=== PATIENT | female | born 1960 | race Hispanic/Latino ===

== ENCOUNTER → 2018-11-28 | Day surgery (SDC) | payer BC ==
[2018-11-26 12:25] LABS: BASOPHILS % 0.8 % (0.0-1.0); EOSINOPHILS # (AUTO) 0.2 (0.0-0.4); EOSINOPHILS % 3.5 % (0.0-6.0); HEMATOCRIT 36.8 % (34.2-44.1); HEMOGLOBIN 12.8 g/dL (12.0-16.0); LYMPHOCYTES # (AUTO) 1.8 (1.0-3.2); LYMPHOCYTES % 36.7 % (18.0-39.1); MEAN CORPUSCULAR HEMOGLOBIN 32.4 pg (28-32); MEAN CORPUSCULAR HGB CONC 34.8 g/dL (31-35); MEAN CORPUSCULAR VOLUME 93.2 fL (81-99); MONOCYTES # (AUTO) 0.4 (0.2-0.8); MONOCYTES % 8.2 % (4.4-11.3); NEUTROPHILS # (AUTO) 2.5 (2.1-6.9); NEUTROPHILS % 50.4 % (38.7-80.0); PLATELET COUNT 282 x10e3/uL (140-360); RED BLOOD COUNT 3.95 x10e6/uL (3.6-5.1); RED CELL DISTRIBUTION WIDTH 12.6 % (11.7-14.4)
[2018-11-26 12:52] LABS: ANION GAP 13.9 mmol/L (8-16); BLOOD UREA NITROGEN 14 mg/dL (7-26); BUN/CREATININE RATIO 18 (6-25); CALCIUM 10.2 mg/dL (8.4-10.2); CARBON DIOXIDE 26 mmol/L (22-29); CHLORIDE 101 mmol/L (98-107); CREATININE, SERUM 0.78 mg/dL (0.57-1.11); EST GLOMERULAR FILTRATION RATE > 60 ML/MIN (60-); GLUCOSE 100 mg/dL (74-118); POTASSIUM 3.9 mmol/L (3.5-5.1); SODIUM 137 mmol/L (136-145)
[~2018-11-28] MED LIST: BENICAR HCT 401 EAC1 PO; BUPIVACAINE 0.25% 30ML SDV INJ ONE; CEFAZOLIN SOD 1 GM/NS 50ML 100 ML IV ONE; DEXAMETHASONE SOD PHOS INJ 4 MG/ML VIAL ONE; FENTANYL CITRATE/PF 100MCG/2 ML INJ ONE; KETAMINE HCL INJ 50 MG/ML 10 ML VIAL ONE; LIDOCAINE HCL 2% LOCAL INJ 5 ML SDV VIAL INJ ONE; LOSARTAN POTASS25 MG PO; MIDAZOLAM HCL 2 MG/2 ML VIAL ONE; MUPIROCIN 2% OINT 22 GM TUBE ONE; PROPOFOL IV EMULSION 10 MG/ML 20 ML VIAL ONE; SEVOFLURANE INHAL SOLN 250 ML PEN BTL ONE
--- OUTSIDE RECORDS SUMMARY | 2018-11-28 09:01 | XMS REPORT | CCD ---
Author Author Auto Generated Organization [facility] Address Unknown Phone Unavailable Care Team Providers Care Fuel Pilot Engineer Name Role Phone Jose Zendejas CP Allergies, Adverse Reactions, Alerts Substance Reaction Status NKDA Active Medications Medication Instructions Start Date End Date Status atropine 0.5 mg, 5 mL, Route: IVP, Drug 11/16/2012 11/17/2012 Discontinued form: INJ, PRN, PRN Bradycardia, Start date: 11/16/12 20:35:00, Duration: 30 day, Stop date: 12/16/12 21:34:00 Tylenol 1,000 mg, 2 tab, Route: PO, Drug 11/16/2012 11/16/2012 Completed form: TAB, ONCE, Dosing Weight 88.636, kg, Start date: 11/16/12 17:15:00, Stop date: 11/16/12 17:15:00 pantoprazole 40 mg, 1 tab, Route: PO, Drug form: 11/17/2012 11/17/2012 Discontinued ECTAB, Daily, Dosing Weight 88.636, kg, Priority: Routine, Start date: 11/17/12 6:30:00, Duration: 30 day, Stop date: 12/16/12 6:30:00 aspirin 81 mg 81 mg, 1 tab, Route: PO, Drug form: 11/17/2012 11/17/2012 Discontinued tablet, enteric ECTAB, Daily, Dosing Weight 88.636, coated kg, Start date: 11/17/12 9:00:00, Duration: 30 day, Stop date: 12/16/12 9:00:00 acetaminophen 650 mg, 2 tab, Route: PO, Drug 11/16/2012 11/17/2012 Discontinued form: TAB, Q4H, Dosing Weight 85.455, kg, PRN Pain/Fever, Start date: 11/16/12 20:36:00, Duration: 30 day, Stop date: 12/16/12 20:35:00 temazepam 15 mg, 1 cap, Route: PO, Drug form: 11/16/2012 11/17/2012 Discontinued CAP, Bedtime, Dosing Weight 85.455, kg, PRN Insomnia, Start date: 11/16/12 20:36:00, Duration: 30 day, Stop date: 12/16/12 20:35:00 morphine Sulfate 2 mg, 1 mL, Route: IVP, Drug form: 11/16/2012 11/17/2012 Discontinued INJ, Q3H, Dosing Weight 85.455, kg, PRN Pain Score 4-6, Start date: 11/16/12 20:36:00, Duration: 30 day, Stop date: 12/16/12 20:35:00 ondansetron 4 mg, 2 mL, Route: IVP, Drug form: 11/16/2012 11/17/2012 Discontinued INJ, Q6H, Dosing Weight 85.455, kg, PRN Nausea & Vomiting, Start date: 11/16/12 20:36:00, Duration: 30 day, Stop date: 12/16/12 20:35:00 pantoprazole 40 mg, Route: IVP, Drug form: INJ, 11/16/2012 11/16/2012 Completed ONCE, Dosing Weight 88.636, kg, Priority: STAT, Start date: 11/16/12 17:01:00, Stop date: 11/16/12 17:01:00 Vital Signs Most recent to oldest [Reference Range]: 1 2 3 Height 172.72 cm (11/16/2012 20:28:00) 167.64 cm (11/16/2012 15:55:00) Temperature Oral [96.4-99.1 DegF] 97.7 DegF (11/17/2012 08:00:00) 97.6 DegF (11/17/2012 04:00:00) 98.3 DegF (11/17/2012 00:00:00) Systolic Blood Pressure [90-140 mmHg] 127 mmHg (11/17/2012 08:00:00) 109 mmHg (11/17/2012 04:00:00) 125 mmHg (11/17/2012 00:00:00) Diastolic Blood Pressure [60-90 mmHg] 69 mmHg (11/17/2012 08:00:00) 64 mmHg (11/17/2012 04:00:00) 80 mmHg (11/17/2012 00:00:00) Respiratory Rate [14-20 BRMIN] 16 BRMIN (11/17/2012 08:00:00) 18 BRMIN (11/17/2012 04:00:00) 18 BRMIN (11/17/2012 00:00:00) Peripheral Pulse Rate [60-100 bpm] 52 bpm *LOW* (11/17/2012 08:00:00) 51 bpm *LOW* (11/17/2012 04:00:00) 54 bpm *LOW* (11/17/2012 00:00:00) Weight 85.455 kg (11/16/2012 20:28:00) 88.636 kg (11/16/2012 15:55:00) Results URINALYSIS Most recent to oldest [Reference Range]: 1 2 3 UA Turbidity [Clear] Clear (11/16/2012 17:01:00) UA Color Ltyellow *NA* (11/16/2012 17:01:00) UA pH [5.0-8.0] 6.0 (11/16/2012 17:01:00) UA Spec Grav [<=1.030] 1.006 (11/16/2012 17:01:00) UA Glucose [Negative mg/dL] Negative mg/dL *NA* (11/16/2012 17:01:00) UA Blood [Negative] Negative (11/16/2012 17:01:00) UA Ketones [Negative mg/dL] Negative mg/dL *NA* (11/16/2012 17:01:00) UA Protein [Negative mg/dL] Negative mg/dL (11/16/2012 17:01:00) UA Urobilinogen [0.1-1.0 mg/dL] <=1.0 mg/dL *NA* (11/16/2012 17:01:00) UA Bili [Negative] Negative *NA* (11/16/2012 17:01:00) UA Leuk Est [Negative] Negative (11/16/2012 17:01:00) UA Nitrite [Negative] Negative (11/16/2012 17:01:00) UA WBC [0-5 /HPF] <1 /HPF (11/16/2012:01:00) UA RBC [0-2 /HPF] <1 /HPF (11/16/2012:01:00) UA Bacteria [None Seen /HPF] Occasional /HPF *NA* (11/16/2012::00) UA Sq Epi None Seen *NA* (11/16/2012::00) CHEMISTRY Most recent to oldest [Reference Range]: 1 2 3 Sodium Lvl [135-145 mEq/L] 143 mEq/L (11/16/2012::00) Potassium Lvl [3.5-5.1 mEq/L] 3.8 mEq/L (11/16/2012::00) Chloride Lvl [95-109 mEq/L] 107 mEq/L (11/16/2012::00) CO2 [24-32 mEq/L] 28 mEq/L (11/16/2012::00) AGAP [10.0-20.0 mEq/L] 11.8 mEq/L (11/16/2012::00) Creatinine Lvl [0.5-1.4 mg/dL] 0.9 mg/dL (11/16/2012::00) eGFR 73 mL/min/1.73m2 1 *NA* (11/16/2012::00) BUN [7-22 mg/dL] 16 mg/dL (11/16/2012::00) B/C Ratio [6-25] 18 (11/16/2012::00) Glucose Lvl [70-99 mg/dL] 130 mg/dL 2 *HI* (11/16/2012::00) Total Protein [6.4-8.4 g/dL] 7.0 g/dL (11/16/2012:01:00) Albumin Lvl [3.5-5.0 g/dL] 3.4 g/dL *LOW* (11/16/2012:01:00) Globulin [2.0-4.0 g/dL] 3.6 g/dL (11/16/2012:01:00) A/G Ratio [0.7-1.6] 0.9 (11/16/2012::00) Calcium Lvl [8.5-10.5 mg/dL] 8.5 mg/dL (11/16/2012:01:00) ALT [0-65 unit/L] 24 unit/L (11/16/2012:01:00) AST [0-37 unit/L] 17 unit/L (11/16/2012::00) Alk Phos [39-136 unit/L] 122 unit/L (11/16/2012::00) Bili Total [0.2-1.3 mg/dL] 0.2 mg/dL (11/16/2012:01:00) Total CK [12-191 unit/L] 80 unit/L (11/17/2012:41:00) 85 unit/L (11/16/2012:51:00) 85 unit/L (11/16/2012:51:00) CK MB [0.5-3.6 ng/mL] 0.7 ng/mL (11/17/2012:41:00) 0.8 ng/mL (11/16/2012:51:00) 1.0 ng/mL (11/16/2012::00) CK MB Index [0.0-2.5] 0.9 (11/17/2012:41:00) 1.0 (11/16/2012:51:00) 1.0 (11/16/2012:00) Troponin-I [0.00-0.40 ng/mL] <0.02 ng/mL (11/17/2012:41:00) <0.02 ng/mL (11/16/2012:51:00) <0.02 ng/mL (11/16/2012:01:00) CHD Risk [3.90-5.80] 3.69 *LOW* (11/17/2012:41:00) Chol [120-200 mg/dL] 155 mg/dL (11/17/2012:41:00) Trig [0-200 mg/dL] 98 mg/dL (11/17/2012:41:00) HDL [>=35 mg/dL] 42 mg/dL (11/17/2012 04:41:00) LDL [0-129 mg/dL] 93 mg/dL (11/17/2012 04:41:00) 1Result Comment: The eGFR is calculated using the CKD-EPI formula. In most young, healthy individuals the eGFR will be >90 mL/min/1.73m2. The eGFR declines with age. An eGFR of 60-89 may be normal in some populations, particularly the elderly, for whom the CKD-EPI formula has not been extensively validated. Use of the eGFR is not recommended in the following populations: Individuals with unstable creatinine concentrations, including patients and those with serious co-morbid conditions. Patients with extremes in muscle mass or diet. The data above are obtained from the National Kidney Disease Education Program ( NKDEP) which additionally recommends that when the eGFR is used in patients with extremes of body mass index for purposes of drug dosing, the eGFR should be mul tiplied by the estimated BMI. 2Interpretive Data: Adult reference range values reflect the clinical guidelines of the [place] [employer]. HEMATOLOGY Most recent to oldest [Reference Range]: 1 2 3 WBC [3.7-10.4 K/CMM] 7.2 K/CMM (11/16/2012::00) RBC [4.20-5.40 M/CMM] 3.81 M/CMM *LOW* (11/16/2012::00) Hgb [12.0-16.0 g/dL] 11.8 g/dL *LOW* (11/16/2012::00) Hct [36.0-48.0 %] 35.4 % *LOW* (11/16/2012:00) MCV [81.0-99.0 fL] 93.0 fL (11/16/2012::00) MCH [27.0-31.0 pg] 31.0 pg (11/16/2012::00) MCHC [32.0-36.0 g/dL] 33.4 g/dL (11/16/2012:00) RDW [11.5-14.5 %] 13.4 % (11/16/2012::00) Platelet [133-450 K/CMM] 256 K/CMM (11/16/2012 17:01:00) MPV [7.4-10.4 fL] 7.3 fL *LOW* (11/16/2012:01:00) Segs [45.0-75.0 %] 59.4 % (11/16/2012::00) Lymphocytes [20.0-40.0 %] 26.1 % (11/16/2012::00) Monocytes [2.0-12.0 %] 6.4 % (11/16/2012::00) Eosinophils [0.0-4.0 %] 7.5 % *HI* (11/16/2012::00) Basophils [0.0-1.0 %] 0.6 % (11/16/2012::00) Segs-Bands # [1.5-8.1 K/CMM] 4.3 K/CMM (11/16/2012 17::00) Lymphocytes # [1.0-5.5 K/CMM] 1.9 K/CMM (11/16/2012:01:00) Monocytes # [0.0-0.8 K/CMM] 0.5 K/CMM (11/16/2012:01:00) Eosinophils # [0.0-0.5 K/CMM] 0.5 K/CMM (11/16/2012:01:00) Basophils # [0.0-0.2 K/CMM] 0.0 K/CMM (11/16/2012 17:01:00) Procedures Procedures Date Related Diagnosis Tubal ligation
--- OUTSIDE RECORDS SUMMARY | 2018-11-28 09:01 | XMS REPORT | Continuity of Care Document ---
Author Author [facility] Address Unknown Phone Unavailable Problems Problem Status Onset Date Classification Date Reported Comments Source CHEST PIAN Active 11/16/2012 [facility] CHEST PAIN Active 06/22/2011 [facility] CHEST PAIN NOS Active [facility] Medications Medication Details Route Status Patient Instructions Ordering Provider Order Date Source aspirin 81 mg tablet, enteric coated 81 mg, 1 tab, Route: PO, Drug form: ECTAB, Daily, Dosing Weight 88.636, kg, Start date: 11/17/12 9:00:00, Duration: 30 day, Stop date: 12/16/12 9:00:00 PO No Longer Active [facility] 11/17/2012 [facility] pantoprazole 40 mg, 1 tab, Route: PO, Drug form: ECTAB, Daily, Dosing Weight 88.636, kg, Priority: Routine, Start date: 11/17/12 6:30:00, Duration: 30 day, Stop date: 12/16/12 6:30:00 PO No Longer Active [facility] 11/17/2012 [facility] acetaminophen 650 mg, 2 tab, Route: PO, Drug form: TAB, Q4H, Dosing Weight 85.455, kg, PRN Pain/Fever, Start date: 11/16/12 20:36:00, Duration: 30 day, Stop date: 12/16/12 20:35:00 PO No Longer Active [facility] 11/17/2012 [facility] temazepam 15 mg, 1 cap, Route: PO, Drug form: CAP, Bedtime, Dosing Weight 85.455, kg, PRN Insomnia, Start date: 11/16/12 20:36:00, Duration: 30 day, Stop date: 12/16/12 20:35:00 PO No Longer Active [facility] 11/17/2012 [facility] morphine Sulfate 2 mg, 1 mL, Route: IVP, Drug form: INJ, Q3H, Dosing Weight 85.455, kg, PRN Pain Score 4-6, Start date: 11/16/12 20:36:00, Duration: 30 day, Stop date: 12/16/12 20:35:00 IVP No Longer Active [facility] 11/17/2012 [facility] ondansetron 4 mg, 2 mL, Route: IVP, Drug form: INJ, Q6H, Dosing Weight 85.455, kg, PRN Nausea & Vomiting, Start date: 11/16/12 20:36:00, Duration: 30 day, Stop date: 12/16/12 20:35:00 IVP No Longer Active [facility] 11/17/2012 [facility] atropine 0.5 mg, 5 mL, Route: IVP, Drug form: INJ, PRN, PRN Bradycardia, Start date: 11/16/12 20:35:00, Duration: 30 day, Stop date: 12/16/12 21:34:00 IVP No Longer Active [facility] 11/17/2012 [facility] Tylenol 1,000 mg, 2 tab, Route: PO, Drug form: TAB, ONCE, Dosing Weight 88.636, kg, Start date: 11/16/12 17:15:00, Stop date: 11/16/12 17:15:00 PO No Longer Active [facility] 11/16/2012 [facility] pantoprazole 40 mg, Route: IVP, Drug form: INJ, ONCE, Dosing Weight 88.636, kg, Priority: STAT, Start date: 11/16/12 17:01:00, Stop date: 11/16/12 17:01:00 IVP No Longer Active [facility] 11/16/2012 [facility] Allergies, Adverse Reactions, Alerts Substance Category Reaction Severity Reaction type Status Date Reported Comments Source Immunizations Immunization Date Given Site Status Last Updated Comments Source Results Order Name Results Value Reference Range Date Interpretation Comments Source CHEMISTRY Chol 155 mg/dL 120 - 200 11/17/2012 Normal [facility] CHEMISTRY Trig 98 mg/dL 0 - 200 11/17/2012 Normal [facility] CHEMISTRY CHD Risk 3.69 3.90 - 5.80 11/17/2012 LOW [facility] CHEMISTRY HDL 42 mg/dL >=35 11/17/2012 Normal [facility] CHEMISTRY LDL 93 mg/dL 0 - 129 11/17/2012 Normal [facility] CHEMISTRY Total CK 80 unit/L 12 - 191 11/17/2012 Normal [facility] CHEMISTRY CK MB 0.7 ng/mL 0.5 - 3.6 11/17/2012 Normal [facility] CHEMISTRY Troponin-I null 0.00 - 0.40 11/17/2012 Normal [facility] CHEMISTRY CK MB Index 0.9 0.0 - 2.5 11/17/2012 Normal [facility] CHEMISTRY Troponin-I null 0.00 - 0.40 11/17/2012 Normal [facility] CHEMISTRY Total CK 85 unit/L 12 - 191 11/17/2012 Normal [facility] CHEMISTRY Total CK 85 unit/L 12 - 191 11/17/2012 Normal [facility] CHEMISTRY CK MB Index 1.0 0.0 - 2.5 11/17/2012 Normal [facility] CHEMISTRY CK MB 0.8 ng/mL 0.5 - 3.6 11/17/2012 Normal [facility] CHEMISTRY CK MB 1.0 ng/mL 0.5 - 3.6 11/16/2012 Normal [facility] CHEMISTRY Troponin-I null 0.00 - 0.40 11/16/2012 Normal [facility] CHEMISTRY eGFR 73 mL/min/1.73m2 11/16/2012 NA 1Result Comment: The eGFR is calculated using [...] from the National Kidney Disease Education Program (NKDEP) which additionally recommends that when the eGFR is used in patients with extremes of body mass index for purposes of drug dosing, the eGFR should be multiplied by the estimated BMI. [facility] CHEMISTRY Albumin Lvl 3.4 g/dL 3.5 - 5.0 11/16/2012 LOW [facility] CHEMISTRY B/C Ratio 18 6 - 25 11/16/2012 Normal [facility] CHEMISTRY AGAP 11.8 meq/L 10.0 - 20.0 11/16/2012 Normal [facility] CHEMISTRY Sodium Lvl 143 meq/L 135 - 145 11/16/2012 Normal [facility] CHEMISTRY Creatinine Lvl 0.9 mg/dL 0.5 - 1.4 11/16/2012 Normal [facility] CHEMISTRY Chloride Lvl 107 meq/L 95 - 109 11/16/2012 Normal [facility] CHEMISTRY Potassium Lvl 3.8 meq/L 3.5 - 5.1 11/16/2012 Normal [facility] CHEMISTRY BUN 16 mg/dL 7 - 22 11/16/2012 Normal [facility] CHEMISTRY Glucose Lvl 130 mg/dL 70 - 99 11/16/2012 [place] 2Interpretive Data: Adult reference range values reflect the clinical guidelines of the [place] [employer]. [facility] CHEMISTRY Calcium Lvl 8.5 mg/dL 8.5 - 10.5 11/16/2012 Normal [facility] CHEMISTRY CO2 28 meq/L 24 - 32 11/16/2012 Normal [facility] CHEMISTRY ALT 24 unit/L 0 - 65 11/16/2012 Normal [facility] CHEMISTRY Alk Phos 122 unit/L 39 - 136 11/16/2012 Normal [facility] CHEMISTRY Bili Total 0.2 mg/dL 0.2 - 1.3 11/16/2012 Normal [facility] CHEMISTRY Total Protein 7.0 g/dL 6.4 - 8.4 11/16/2012 Normal [facility] CHEMISTRY AST 17 unit/L 0 - 37 11/16/2012 Normal [facility] CHEMISTRY A/G Ratio 0.9 0.7 - 1.6 11/16/2012 Normal [facility] CHEMISTRY Globulin 3.6 g/dL 2.0 - 4.0 11/16/2012 Normal [facility] CHEMISTRY CK MB Index 1.0 0.0 - 2.5 11/16/2012 Normal [facility] HEMATOLOGY MPV 7.3 fL 7.4 - 10.4 11/16/2012 LOW [facility] HEMATOLOGY MCV 93.0 fL 81.0 - 99.0 11/16/2012 Normal [facility] HEMATOLOGY Hgb 11.8 g/dL 12.0 - 16.0 11/16/2012 LOW [facility] HEMATOLOGY RBC 3.81 M/CMM 4.20 - 5.40 11/16/2012 LOW [facility] HEMATOLOGY WBC 7.2 K/CMM 3.7 - 10.4 11/16/2012 Normal [facility] HEMATOLOGY Hct 35.4 % 36.0 - 48.0 11/16/2012 LOW [facility] HEMATOLOGY Platelet 256 K/CMM 133 - 450 11/16/2012 Normal [facility] HEMATOLOGY RDW 13.4 % 11.5 - 14.5 11/16/2012 Normal [facility] HEMATOLOGY MCHC 33.4 g/dL 32.0 - 36.0 11/16/2012 Normal [facility] HEMATOLOGY MCH 31.0 pg 27.0 - 31.0 11/16/2012 Normal [facility] HEMATOLOGY Basophils # 0.0 K/CMM 0.0 - 0.2 11/16/2012 Normal [facility] HEMATOLOGY Eosinophils # 0.5 K/CMM 0.0 - 0.5 11/16/2012 Normal [facility] HEMATOLOGY Monocytes # 0.5 K/CMM 0.0 - 0.8 11/16/2012 Normal [facility] HEMATOLOGY Lymphocytes # 1.9 K/CMM 1.0 - 5.5 11/16/2012 Normal [facility] HEMATOLOGY Basophils 0.6 % 0.0 - 1.0 11/16/2012 Normal [facility] HEMATOLOGY Eosinophils 7.5 % 0.0 - 4.0 11/16/2012 [facility] HEMATOLOGY Monocytes 6.4 % 2.0 - 12.0 11/16/2012 Normal [facility] HEMATOLOGY Lymphocytes 26.1 % 20.0 - 40.0 11/16/2012 Normal [facility] HEMATOLOGY Segs-Bands # 4.3 K/CMM 1.5 - 8.1 11/16/2012 Normal [facility] HEMATOLOGY Segs 59.4 % 45.0 - 75.0 11/16/2012 Normal [facility] URINALYSIS UA Sq Epi None Seen 11/16/2012 NA [facility] URINALYSIS UA Color Ltyellow 11/16/2012 NA [facility] URINALYSIS UA Urobilinogen <=1.0 mg/dL
*NA*
(11/16/2012 17:01:00) <sup> </sup> 0.1 - 1.0 11/16/2012 NA [facility] URINALYSIS UA Nitrite Negative (11/16/2012 17:01:00) Negative 11/16/2012 Normal [facility] URINALYSIS UA Glucose Negative mg/dL *NA* (11/16/2012 17:01:00) Negative 11/16/2012 NA [facility] URINALYSIS UA Ketones Negative mg/dL *NA* (11/16/2012 17:01:00) Negative 11/16/2012 [facility] URINALYSIS UA Bili Negative *NA* (11/16/2012 17:01:00) Negative 11/16/2012 NA [facility] URINALYSIS UA Blood Negative (11/16/2012 17:01:00) Negative 11/16/2012 Normal [facility] URINALYSIS UA Leuk Est Negative (11/16/2012 17:01:00) Negative 11/16/2012 Normal [facility] URINALYSIS UA WBC null 0 - 5 11/16/2012 Normal [facility] URINALYSIS UA RBC null 0 - 2 11/16/2012 Normal [facility] URINALYSIS UA Bacteria Occasional /HPF *NA* (11/16/2012 17:01:00) None Seen 11/16/2012 NA [facility] URINALYSIS UA Spec Grav 1.006 <=1.030 11/16/2012 Normal [facility] URINALYSIS UA pH 6.0 5.0 - 8.0 11/16/2012 Normal [facility] URINALYSIS UA Protein Negative mg/dL (11/16/2012 17:01:00) Negative 11/16/2012 Normal [facility] URINALYSIS UA Turbidity Clear (11/16/2012 17:01:00) Clear 11/16/2012 Normal [facility] Vital Signs Vital Sign Value Date Comments Source Temperature Oral (F) 97.7 F 11/17/2012 [facility] Heart Rate 52 11/17/2012 [facility] Respitory Rate 16 11/17/2012 [facility] Diastolic (mm Hg) 69 11/17/2012 [facility] Systolic (mm Hg) 127 11/17/2012 [facility] Diastolic (mm Hg) 64 11/17/2012 [facility] Systolic (mm Hg) 109 11/17/2012 [facility] Respitory Rate 18 11/17/2012 [facility] Heart Rate 51 11/17/2012 [facility] Temperature Oral (F) 97.6 F 11/17/2012 [facility] Diastolic (mm Hg) 80 11/17/2012 [facility] Temperature Oral (F) 98.3 F 11/17/2012 [facility] Respitory Rate 18 11/17/2012 [facility] Heart Rate 54 11/17/2012 [facility] Systolic (mm Hg) 125 11/17/2012 [facility] Weight 85.455 11/17/2012 [facility] Height 172.72 cm 11/17/2012 [facility] Weight 88.636 11/16/2012 [facility] Height 167.64 cm 11/16/2012 [facility] Encounters Location Location Details Encounter Type Encounter Number Reason For Visit Attending Provider ADM Date DC Date Status Source [facility] Emergency [id number] JOSE VENTURA 06/22/2011 06/23/2011 Active [facility] OU [id number] FARAZ ZHANG 11/16/2012 11/17/2012 Active [facility] Procedures Procedure Code Date Perfomer Comments Source Tubal ligation [id number] Em
--- OUTSIDE RECORDS SUMMARY | 2018-11-28 09:01 | XMS REPORT | Summary of Care ---
Author Author Ludmila Bhakta M.A. Unknown Address [facility] Phone Unavailable Care Team Providers Care Management And Budget Analyst Name Role Phone VAISHNAVI CURTIS M.D. Unavailable Unavailable ZANA ODOM III, MD Unavailable Unavailable Katiuska Domingo Unavailable Unavailable Unavailable Unavailable Functional Status Name Dates Details Functional status health issues are not documented Status: Name Dates Details Cognitive status health issues are not documented Status: Problems Name Dates Details Hypertension (401.9, I10) Status: Active Medications Name Dates Details Losartan Potassium 50 MG Oral Tablet TAKE ONE TABLET BY MOUTH TWICE A DAY Quantity: 60 VAISHNAVI CURTIS M.D. * Start : 15-Apr-2018 Active Allergies and Adverse Reactions Name Dates Details No Known Drug Allergies (Allergy) Status: Active Past Medical History Name Dates Details Hypertension (401.9, I10) Status: Active Procedures Procedure Dates Details History of Tubal Ligation Completed History of Foot Surgery Completed History of Gastric bypass surgery Completed Immunization Name Dates Details Immunizations not documented Family History Name Dates Details Family history of CAD (coronary artery disease) (414.00, I25.10) Comments: Family History Status: Active Family history of History of open heart surgery (V45.89, Z98.890) Comments: Family History Status: Active Name Dates Details Family history of hypertension (V17.49, Z82.49) Status: Active Family history of diabetes mellitus (V18.0, Z83.3) Status: Active Name Dates Details Family history of Heart problem (429.9, I51.9) Status: Active Family history of CAD (coronary artery disease) (414.00, I25.10) Status: Active Social History Name Dates Details - Status: Name Dates Details Never smoker Vital Signs Date Test Result Details No Known Vitals to report Results Date Description Value Details Results not documented Plan of Care Name Dates Details Planned Observations Planned Goals not documented Planned Encounters Appointment; VAISHNAVI CURTIS M.D. On: 12-May-2018 8:30 Interventions Provided Plan* 1. Hypertension * - Resume Valsartan 160 mg * 2 Chest Pain atypical * - negative work up * 3. Surgical clearance (bariatric ) * - based on w/ up acceptable CV risk for general anesthesia * - uneventful surgery * 4. Follow up in 6 mos with Labs (1ac, TSH and Lipids) * - BP log Discussion/Summary* Clinical cardiac findings and EKG reviewed and discussed. * EKG reviewed and discussed. Instructions Name Dates Details Instructions not documented Encounters Appointment; VAISHNAVI CURTIS M.D. Encounter Diagnosis: Problem not documented On: 27-Nov-2016 8:30 Appointment; SE, ECHO Encounter Diagnosis: Problem not documented On: 10-Dec-2016 13:00 Appointment; SE, ECHO Encounter Diagnosis: Problem not documented On: 10-Dec-2016 13:00 Appointment; SE, NUCLEAR Encounter Diagnosis: Problem not documented On: 20-Dec-2016 8:00 Appointment; VAISHNAVI CURTIS M.D. Encounter Diagnosis: Problem not documented On: 21-Jan-2017 10:00 Appointment; VAISHNAVI CURTIS M.D. Encounter Diagnosis: Problem not documented On: 02-May-2017 13:40 Appointment; VAISHNAVI CURTIS M.D. Encounter Diagnosis: Problem not documented On: 02-May-2017 13:45 Appointment; VAISHNAVI CURTIS M.D. Encounter Diagnosis: Problem not documented On: 21-Nov-2017 13:30 Appointment; VAISHNAVI CURTIS M.D. Encounter Diagnosis: Problem not documented On: 12-May-2018 8:30
--- OUTSIDE RECORDS SUMMARY | 2018-11-28 09:01 | XMS REPORT ---
Author Author [facility] Address Unknown Phone Unavailable Care Team Providers Care Pet Food Deboner Name Role Phone Unavailable Unavailable Problems This patient has no known problems. Allergies, Adverse Reactions, Alerts This patient has no known allergies or adverse reactions. Medications This patient has no known medications. Results Test Description Test Time Test Comments Text Results Atomic Results Result Comments BREAST ULTRASOUND BILATERAL 2018-10-21 14:21:56 - BREAST ULTRASOUND BILATERALULTRASOUND OF BOTH BREASTS AND BOTH AXILLA: 10/21/2018CLINICAL: Abnormal mammogram. Comparison is made to exams dated 10/21/2018 mammogram, 09/29/2018 mammogram, and 07/16/2017 mammogram - [facility]. Real-time ultrasound of both breasts and both axilla was performed. There is a benign 6 mm cyst in the right breast at 1 o'clock, 3 cm from the nipple, that does not correspond to the mammographic findings. No abnormalities were seen sonographically in the left breast or either axilla. Bilateral implants are intact. Clinical breast exam was unremarkable. IMPRESSION: BENIGN There is no sonographic evidence of malignancy. Patient has been informed that she has areas of dense breast tissue that could make it difficult to find a small cancer. A screening mammogram and supplemental ultrasound for dense breast tissue is recommended in 1 year.Margaret Hernandez M.D. dm/:10/21/2018 14:21:56 Master Fire Control Technician: Catalina VILLEGAS, [facility] sent: BIRADS 1-2 Combo FU Letter Ultrasound BI- RADS: 2 Benign DIAG MAMM RIGHT CAR CAD DIGITAL 2018-10-21 14:20:08 - DIAG MAMM RIGHT CAR CAD DIGITALUNILATERAL RIGHT DIGITAL DIAGNOSTIC MAMMOGRAM 3D/2D WITH CAD: 10/21/2018CLINICAL: Abnormal Mammogram. Digital breast tomosynthesis was performed in addition to routine CC and MLO views. Current mammographic images were evaluated by either a [facility] Sol-Poli or a [employer] ImageChecker CAD (computer aided detection system). Comparison is made to exams dated 09/29/2018 mammogram, 07/16/2017 mammogram, and [facility]. The tissue of the right breast is heterogeneously dense. This may lower the sensitivity of mammography. No suspicious mass, architectural distortion, malignant type calcification, or lymph node abnormality detected. IMPRESSION: INCOMPLETE ASSESSMENT: ADDITIONAL IMAGING EVALUATION RECOMMENDEDUltrasound pending for additional evaluation. Margaret Hernandez M.D. dm/penrad:10/21/2018 14:20:08 Entry: - 10/22/2018 17:01:02Imaging Technologist: Katiuska Winters , [facility] BI-RAD S: 0 Indeterminate SCR MAMM BILATERAL CAR CAD DIGITAL W/AUGMENTATION 2018-09-30 10:31:19 - SCR MAMM BILATERAL CAR CAD DIGITAL W/AUGMENTATIONBILATERAL DIGITAL SCREENING MAMMOGRAM 3D/2D WITH CAD WITH AUGMENTATION: 09/29/2018CLINICAL: Asymptomatic. Digital breast tomosynthesis was performed in addition to routine CC and MLO views. Current mammographic images were evaluated by either a [employer] M-Vu or a [employer] ImageChecker CAD (computer aided detection system). Comparison is made to exams dated 07/16/2017 mammogram and [facility]10/2005 [facility]. The tissue of both breasts is heterogeneously dense. This may lower the sensitivity of mammography. There is a 6 mm asymmetry in the right breast, posterior depth, medial region seen on the craniocaudal view only, 7 cm from the nipple. No other significant masses, calcifications, or other findings are seen in either breast. Bilateral pre-pectoral saline implants are noted.IMPRESSION: INCOMPLETE ASSESSMENT: ADDITIONAL IMAGING EVALUATION RECOMMENDEDThe 6 mm asymmetry in the right medial breast, posterior depth, 7 cm from the nipple (RCCID view) is indeterminate. Spot compression view as well as a possible ultrasound are recommended. Pura Joseph M.D. ar/:09/30/2018 10:31:19 Master Fire Control Technician: Jayne Ferro , [facility]letter sent: Additional Imaging Mammogram BI-RADS: 0 Indeterminate
[2018-11-28 14:03] VITALS: BP 139/80
--- NOTE | 2018-11-29 02:38 | Operative Report ---
DATE OF PROCEDURE: 11/28/2018 SURGEON: Odilon Lorenz DPM ROOM NUMBER: [facility]. PREOPERATIVE DIAGNOSES: 1. Rigidly contracted hammer toe, 2nd digit, right foot. 2. 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 POSTOPERATIVE DIAGNOSES: 1. Rigidly contracted hammer toe, 2nd digit, right foot. 2. 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 TITLE OF OPERATIONS: 1. Arthroplasty of the 2nd digit of the right foot. 2. Neurolysis with actual excision of the neuroma 2nd intermetatarsal space of the right foot. PROCEDURE IN DETAIL: The patient was taken to the operating room in a moderate sedated state and placed on the operating room table in supine position. Following induction of general anesthetic, the left lower extremity was elevated to 60 degrees to exsanguinate. Pneumatic thigh tourniquet was elevated and attention was directed to the dorsal aspect of the 2nd digit. A linear longitudinal incision was made overlying the first metatarsophalangeal joint level. The head of the proximal phalanx was restricted from significant lesion. The dissection occurred on the left and the entire digit was treated with an arthrodesis. Transverse tenotomy was performed. The head of the proximal phalanx was delivered in the surgical site and remodeled utilizing oscillating saw. The base of the intermediate phalanx was remodeled as well. That area was then allowed for the fusion with 2-step implants. This having been accomplished, the area was irrigated and under fluoroscopy excellent fixation was noted. That area was then closed with 3-0 Vicryl, 4-0 nylon. The attention was then directed to the 2nd intermetatarsal space. Second incision was placed. Linear longitudinal incision overlying the second intermetatarsal space, transverse intermetatarsal ligament was released and the underlying tissue, the actual nerve knot, was noted distally and that nerve was quite enlarged. In fact, the original plan had been for a neurolysis, but because of the extreme size of the neuroma, intraoperative decision to remove that entire structure. The neuroma and its proximal extension was made and that was performed. The area was irrigated with copious amounts of sterile saline solution. Deep closure with 3-0 Vicryl, subcutaneous closure with 4-0 Vicryl, and skin closure with 4-0 nylon. The area of the surgery was then blocked with 0.5 Marcaine, Decadron-LA. Released the pneumatic thigh tourniquet, showed a normal hyperemic flush to all digits of the right foot. The patient left the operating room with vital signs stable in apparent satisfactory condition having tolerated both anesthetic and procedure very well. NICO Olivares/KOBE /[id number]
== END | disposition home or self-care (01) ==
LOC: OR 08:57
PROVIDERS: ATTEND Podiatrist Foot Surgery
DX: M20.41 Other hammer toe(s) (acquired), right foot (principal); G57.61 Lesion of plantar nerve, right lower limb; I10 Essential (primary) hypertension; Z91.048 Other nonmedicinal substance allergy status; Z01.812 Encounter for preprocedural laboratory examination
CPT/HCPCS: 28080; 28285; 36415; 80048; 85025; 88304; C1713; J0690; J1100; J2001; J2250; J2704; Q4100; 76000

== ENCOUNTER 2021-06-26 17:12 | Inpatient (IN) | payer BC ==
[~2021-06-26] VITALS: Ht 170.2 cm; Wt 89.6 kg
[~2021-06-26 17:12] MED LIST changes: -BUPIVACAINE 0.25% 30ML SDV INJ ONE; -CEFAZOLIN SOD 1 GM/NS 50ML 100 ML IV ONE; -DEXAMETHASONE SOD PHOS INJ 4 MG/ML VIAL ONE; -FENTANYL CITRATE/PF 100MCG/2 ML INJ ONE; -KETAMINE HCL INJ 50 MG/ML 10 ML VIAL ONE; -LIDOCAINE HCL 2% LOCAL INJ 5 ML SDV VIAL INJ ONE; -MIDAZOLAM HCL 2 MG/2 ML VIAL ONE; -MUPIROCIN 2% OINT 22 GM TUBE ONE; -PROPOFOL IV EMULSION 10 MG/ML 20 ML VIAL ONE; -SEVOFLURANE INHAL SOLN 250 ML PEN BTL ONE
[2021-06-26] MEDS ORDERED: ONDANSETRON HCL INJ 2MG/ML 2ML 2 MG/ML VIAL IV STA (17:58)
[2021-06-26] MEDS ORDERED: MORPHINE SULFATE INJ 4 MG/ML INJ 1ML IV STA (17:58)
[2021-06-26] MEDS ORDERED: ONDANSETRON HCL INJ 2MG/ML 2ML 2 MG/ML VIAL IV PRN (19:45)
[2021-06-26] MEDS ORDERED: ASPIRIN 81 MG CHEW TAB PO ONE (19:45)
[2021-06-26] MEDS ORDERED: MORPHINE SULFATE INJ 4 MG/ML INJ 1ML IV PRN (19:45)
[2021-06-27] VITALS (11 sets, daily range): BP systolic 90–144; BP diastolic 51–88
[2021-06-27 06:45] LABS: CHOL/HDL RATIO 3.1 (3.0-3.6); MAGNESIUM 1.7 MG/DL (1.3-2.1)
[2021-06-27 07:03] LABS: BASOPHILS # (AUTO) 0.1 (0.0-0.1); EOSINOPHILS # (AUTO) 0.4 (0.0-0.4); EOSINOPHILS % 7.1 % (0.0-6.0); HEMATOCRIT 34.2 % (34.2-44.1); HEMOGLOBIN 11.6 g/dL (12.0-16.0); LYMPHOCYTES # (AUTO) 2.2 (1.0-3.2); LYMPHOCYTES % 37.1 % (18.0-39.1); MEAN CORPUSCULAR HEMOGLOBIN 32.8 pg (28-32); MEAN CORPUSCULAR HGB CONC 33.9 g/dL (31-35); MEAN CORPUSCULAR VOLUME 96.6 fL (81-99); MONOCYTES # (AUTO) 0.5 (0.2-0.8); MONOCYTES % 8.7 % (4.4-11.3); NEUTROPHILS # (AUTO) 2.7 (2.1-6.9); NEUTROPHILS % 45.8 % (38.7-80.0); PLATELET COUNT 225 x10e3/uL (140-360); RED BLOOD COUNT 3.54 x10e6/uL (3.6-5.1); RED CELL DISTRIBUTION WIDTH 12.2 % (11.7-14.4)
[2021-06-27 07:17] LABS: THYROID STIMULATING HORMONE 5.311 uIU/mL (0.350-4.940)
[2021-06-27 07:24] LABS: ALBUMIN 3.3 g/dL (3.5-5.0); ALBUMIN/GLOBULIN RATIO 1.2 (0.8-2.0); ANION GAP 11.4 mmol/L (8-16); CALCIUM 8.2 mg/dL (8.4-10.2); CREATININE, SERUM 0.75 mg/dL (0.57-1.11); POTASSIUM 3.4 mmol/L (3.5-5.1)
[2021-06-27 07:31] LABS: CREATINE KINASE MB 5.4 ng/mL (0-5.0)
[2021-06-27] MEDS: SODIUM CHLORIDE 0.9% 1000ML 1,000 ML IV SCH (10:48)
[2021-06-27] MEDS: PANTOPRAZOLE SOD 40 MG TABEC PO SCH (10:48)
[2021-06-27 16:14] LABS: CREATINE KINASE MB 0.9 ng/mL (0-5.0)
[2021-06-27] MEDS ORDERED: IOPAMIDOL 370 MG/ML 200 ML INFUS..BTL INJ ONE (18:23)
[2021-06-27] MEDS ORDERED: SODIUM CHLORIDE 0.9% 50ML 50 ML ONE (18:23)
[2021-06-27] MEDS ORDERED: HYDROCODONE/APAP 5MG-325MG TAB PO PRN (22:45)
[2021-06-28] VITALS: BP 114/71
[2021-06-28 04:00] VITALS: BP 117/66
[2021-06-28] MEDS: SODIUM CHLORIDE 0.9% 1000ML 1,000 ML IV SCH ×2 (04:31→12:40)
[2021-06-28 05:52] LABS: BASOPHILS # (AUTO) 0.1 (0.0-0.1); BASOPHILS % 0.9 % (0.0-1.0); EOSINOPHILS # (AUTO) 0.3 (0.0-0.4); EOSINOPHILS % 5.2 % (0.0-6.0); LYMPHOCYTES # (AUTO) 2.1 (1.0-3.2); LYMPHOCYTES % 37.8 % (18.0-39.1); MEAN CORPUSCULAR HEMOGLOBIN 33.1 pg (28-32); MEAN CORPUSCULAR HGB CONC 34.3 g/dL (31-35); MEAN CORPUSCULAR VOLUME 96.7 fL (81-99); MONOCYTES # (AUTO) 0.5 (0.2-0.8); MONOCYTES % 8.8 % (4.4-11.3); NEUTROPHILS # (AUTO) 2.6 (2.1-6.9); NEUTROPHILS % 47.1 % (38.7-80.0); PLATELET COUNT 225 x10e3/uL (140-360); RED BLOOD COUNT 3.62 x10e6/uL (3.6-5.1); RED CELL DISTRIBUTION WIDTH 12.1 % (11.7-14.4)
[2021-06-28 06:29] LABS: FREE THYROXINE INDEX 1.4092 (1.4-3.8); THYROID STIMULATING HORMONE 5.636 uIU/mL (0.350-4.940)
[2021-06-28 07:16] LABS: ALBUMIN 3.2 g/dL (3.5-5.0); ALBUMIN/GLOBULIN RATIO 1.3 (0.8-2.0); ANION GAP 10.8 mmol/L (8-16); CALCIUM 8.3 mg/dL (8.4-10.2); CREATININE, SERUM 0.78 mg/dL (0.57-1.11); POTASSIUM 3.8 mmol/L (3.5-5.1)
[2021-06-28 08:00] VITALS: BP 115/71
[2021-06-28] MEDS: PANTOPRAZOLE SOD 40 MG TABEC PO SCH (08:48)
[2021-06-28 08:59] VITALS: BP 115/71
[2021-06-28 12:18] VITALS: BP 137/88
[2021-06-28] MEDS ORDERED: REGADENOSON 0.4 MG/5 ML SYR IV ONE (12:29)
[2021-06-28 16:06] VITALS: BP 116/62
== END 2021-06-28 17:31 | disposition home or self-care (01) | DRG 310 ==
LOC: FSED 17:35 → ERHOLD 19:43 → MED/SURG 23:26 → OBSVTOIN 06-28 12:47
PROVIDERS: ADMIT Internal Medicine; ATTEND Internal Medicine
DX: R00.1 Bradycardia, unspecified (principal); I10 Essential (primary) hypertension; K80.20 Calculus of gallbladder without cholecystitis without obstruction; Z20.822 Contact with and (suspected) exposure to COVID-19
CPT/HCPCS: 36415; 71046; 71260; 78452; 80053; 80061; 82550; 82553; 83036; 83735; 84436; 84443; 84479; 84484; 85025; 85379; 93005; 93017; 93306; 96374; 96375; 99284; A9502; G0378; J2270; J2405; J7030; Q9967; U0002

== ENCOUNTER 2025-07-03 16:54 | Inpatient (IN) | payer BC, OTHER ==
[~2025-07-03] VITALS: Ht 170.2 cm; Wt 78.0 kg
[2025-07-03] MEDS: SODIUM CHLORIDE 0.9% 1000ML 1,000 ML IV ONE (17:26)
[2025-07-03 17:29] LABS: BASOPHILS % 0.4 % (0.0-1.0); EOSINOPHILS % 4.5 % (0.0-6.0); LYMPHOCYTES % 17.8 % (18.0-39.1); MONOCYTES % 8.4 % (4.4-11.3); NEUTROPHILS % 68.7 % (38.7-80.0); RED CELL DISTRIBUTION WIDTH 13.1 % (11.7-14.4)
[2025-07-03 17:41] LABS: LEUKOCYTE ESTERASE ,URINE NEGATIVE (NEGATIVE); PROTEIN,URINE DIPSTICK NEGATIVE (NEGATIVE); URINE UROBILINOGEN 0.2 mg/dL (0.2 - 1)
[2025-07-03 17:45] LABS: EPITHELIAL CELLS,URINE FEW /LPF
[2025-07-03 17:49] LABS: EST GLOMERULAR FILTRATION RATE 76.0 ML/MIN (>=60)
[2025-07-03] MEDS ORDERED: IOPAMIDOL 370 MG/ML 100 ML INFUS..BTL INJ ONE (18:05)
[2025-07-03] MEDS: ONDANSETRON HCL INJ 2MG/ML 2ML 2 MG/ML VIAL IV STA (18:46)
[2025-07-03] MEDS: Morphine 4mg INJECTION 4 MG/ML INJ IV ONE (18:47)
[2025-07-03 18:56] VITALS: TEMP 98.4
[2025-07-03 19:11] VITALS: PULSE 78; RESP 17
[2025-07-03] MEDS: SODIUM CHLORIDE 0.9% 1000ML 1,000 ML IV SCH (20:12)
[2025-07-03] MEDS: ACETAMINOPHEN 1000 MG/100 ML IV PRN (20:31)
[2025-07-03 21:00] VITALS: BP 138/80; PULSE 74; RESP 19; RESP 20; TEMP 98.8; O2SAT 98
[2025-07-03 21:18] VITALS: BP 138/80; PULSE 74; RESP 19; TEMP 98.8; O2SAT 98
[2025-07-03] MEDS: ONDANSETRON HCL INJ 2MG/ML 2ML 2 MG/ML VIAL IV PRN (23:37)
[2025-07-03] MEDS: Morphine 4mg INJECTION 4 MG/ML INJ IV PRN (23:37)
[2025-07-04] VITALS (10 sets, daily range): BP systolic 102–132; BP diastolic 62–71; PULSE 63–84; RESP 16–19; TEMP 97.8–101.2; O2SAT 94–100
[2025-07-04 05:39] LABS: BASOPHILS % 0.3 % (0.0-1.0); EOSINOPHILS % 1.5 % (0.0-6.0); LYMPHOCYTES % 7.6 % (18.0-39.1); MONOCYTES % 7.1 % (4.4-11.3); NEUTROPHILS % 83.3 % (38.7-80.0); RED CELL DISTRIBUTION WIDTH 13.1 % (11.7-14.4)
[2025-07-04 06:07] LABS: INR 1.17
[2025-07-04 06:16] LABS: EST GLOMERULAR FILTRATION RATE 71.0 ML/MIN (>=60)
[2025-07-04] MEDS ORDERED: HYDRALAZINE HCL 20 MG/ML VIAL IV PRN (13:15)
[2025-07-05] VITALS (7 sets, daily range): BP systolic 105–138; BP diastolic 60–87; PULSE 61–80; RESP 16–18; TEMP 97.8–99.7; O2SAT 95–100
[2025-07-05] MEDS: DIPHENHYDRAMINE HCL INJ 50 MG/ML VIAL IV PRN (03:37)
[2025-07-05] MEDS ORDERED: ROCURONIUM BROMIDE 1 ML IV ONE ×2 (06:52→07:31)
[2025-07-05] MEDS ORDERED: PROPOFOL IV EMULSION 10 MG/ML 20 ML VIAL ONE (06:52)
[2025-07-05] MEDS ORDERED: FENTANYL CITRATE/PF 100MCG/2 ML INJ ONE (06:52)
[2025-07-05] MEDS ORDERED: LIDOCAINE HCL 2% LOCAL INJ 5 ML SDV VIAL INJ ONE (06:52)
[2025-07-05] MEDS ORDERED: ONDANSETRON HCL INJ 2MG/ML 2ML 2 MG/ML VIAL ONE (07:20)
[2025-07-05] MEDS ORDERED: ACETAMINOPHEN 1000 MG/100 ML 100 ML IV ONE (07:20)
[2025-07-05] MEDS ORDERED: DEXAMETHASONE SOD PHOS INJ 4 MG/ML SDV ONE (07:20)
[2025-07-05] MEDS: FAMOTIDINE 20 MG TAB PO SCH (07:24)
[2025-07-05] MEDS ORDERED: PHENYLEPHRINE HCL 1% 10 MG/ML VIAL ONE (07:33)
[2025-07-05] MEDS ORDERED: SUGAMMADEX SODIUM 200 MG/2 ML VIAL IV ONE (07:52)
[2025-07-05] MEDS ORDERED: ONDANSETRON HCL INJ 2MG/ML 2ML 2 MG/ML VIAL IV PRN (08:30)
[2025-07-05] MEDS ORDERED: HYDROCODONE/APAP 7.5MG-325MG 1 EA TAB PO PRN (08:30)
[2025-07-05] MEDS ORDERED: KETOROLAC TROMETHAMINE 30 MG/ML VIAL IV PRN (08:30)
[2025-07-05] MEDS ORDERED: LEVOFLOXACIN250 MG PO (19:46)
== END 2025-07-05 20:29 | disposition home or self-care (01) | DRG 399 ==
LOC: ER 18:30 → ERHOLD 19:28 → MED/SURG 21:06
PROVIDERS: ADMIT Internal Medicine; ATTEND Internal Medicine
PROC: 0DTJ4ZZ Resection of Appendix, Percutaneous Endoscopic Approach (ICD-10-PCS; principal; 2025-07-05 07:08)
DX: K35.80 Unspecified acute appendicitis (principal); I10 Essential (primary) hypertension; Z90.710 Acquired absence of both cervix and uterus; Z91.018 Allergy to other foods; Z91.0110 Allergy to milk products, unspecified
CPT/HCPCS: 36415; 71045; 74177; 80053; 81001; 83690; 85025; 85610; 85730; 88304; 93005; 94799; 99284; C1766; J1100; J1200; J2003; J2270; J2371; J2405; J2543; J7030; Q9967